=== PATIENT | male | born 1975 | race Caucasian/White ===

== ENCOUNTER → 2017-12-12 | Outpatient (CLI) | payer OTHER ==
[~2017-12-12] MED LIST: CONRAY-43 43% 50ML VIAL (Q9960) As Ordered; PROHANCE 279.3MG/ML 5ML VIAL (A9576) As Ordered
== END ==
LOC: M RADPRO 06:30
DX: M25.551 Pain in right hip (principal); R93.7 Abnormal findings on diagnostic imaging of other parts of musculoskeletal system
CPT/HCPCS: 27093

== ENCOUNTER → 2017-12-17 | Outpatient (CLI) | payer OTHER | LOC: M RADPRO 06:42 | DX: M25.752 Osteophyte, left hip (principal); M94.252 Chondromalacia, left hip; M24.152 Other articular cartilage disorders, left hip | CPT/HCPCS: 27093 ==

== ENCOUNTER 2023-05-04 06:55 | Day surgery (SDC) | payer OTHER ==
[~2023-05-04] VITALS: Ht 175.3 cm; Wt 93.9 kg
[~2023-05-04 06:55] MED LIST changes: -CONRAY-43 43% 50ML VIAL (Q9960) As Ordered; -PROHANCE 279.3MG/ML 5ML VIAL (A9576) As Ordered; +SIMETHICONE 40MG/0.6ML DROPS 30ML As Ordered ONE; +TRAZ-252 PO
[2023-05-04] MEDS ORDERED: propofoL 200 MG/20 ML VIAL As Ordered ONE (07:06)
[2023-05-04] MEDS: NS 1,000 ML IV ONE (07:11)
[2023-05-04 08:32] VITALS: TEMP 96.9
[2023-05-04 08:51] VITALS: BP 131/78; O2SAT 98
== END 2023-05-04 08:54 | disposition home or self-care (01) ==
LOC: M OPP 06:55
PROVIDERS: ATTEND Internal Medicine Gastroenterology
DX: Z12.11 Encounter for screening for malignant neoplasm of colon (principal); D12.6 Benign neoplasm of colon, unspecified; K57.30 Diverticulosis of large intestine without perforation or abscess without bleeding; K64.4 Residual hemorrhoidal skin tags; K64.8 Other hemorrhoids; Z79.02 Long term (current) use of antithrombotics/antiplatelets; Z79.899 Other long term (current) drug therapy